=== PATIENT | male | born 1985 | race Caucasian/White ===

== ENCOUNTER 2017-04-13 16:37 | Emergency (ER) | payer OTHER ==
[~2017-04-13] VITALS: Ht 177.8 cm; Wt 145.2 kg
[~2017-04-13 16:37] MED LIST: FLUT16SP19 NS; LOR5/325 PO; NO; PRO25 PO; VARE1TAB4 PO
--- NOTE | 2017-04-13 16:44 | ER Report ---
History and Physical Time Seen By MD: 16:44 HPI/ROS CHIEF COMPLAINT: Nausea, vomiting and diarrhea HISTORY OF PRESENT ILLNESS: This is a 31-year-old male who presents to the emergency department for nausea, vomiting, diarrhea. Patient states that about six this morning and began having some nausea and then progressed into vomiting and diarrhea. Patient states that he's had nausea, vomiting and diarrhea all day with little relief. Patient states he's had abdominal pain he thinks due to the frequent vomiting episodes. Patient also states that he's not taking any medications for his symptoms. Patient has also has aches, chills and myalgias. Patient denies blood in the emesis or diarrhea. No urinary symptoms. No headaches, chest pain or shortness of breath. REVIEW OF SYSTEMS: Constitutional: As above. Eyes: No discharge. ENT: No sore throat. Cardiovascular: No chest pain, no palpitations. Respiratory: No cough, no shortness of breath. Gastrointestinal: As above. Genitourinary: No hematuria. Musculoskeletal: No back pain. Skin: No rashes. Neurological: No headache. Allergies: Coded Allergies: No Known Drug Allergies (Verified , 04/13/17) Home Meds Active Scripts Ondansetron (ZOFRAN ODT) 4 Mg Tab.rapdis, 4 MG PO Q6H Y for NAUSEA/VOMITING, # 20 TAB.ALFREDO Prov:AMBROCIO PRICE PARKING MANAGER- 04/13/17 Discontinued Reported Medications Fluticasone Prop 50 Mcg Ns (FLONASE 50 MCG NS) 16 Gm Mertens.susp, 2 SPRAYS NS QDAY, BOT 02/11/17 Varenicline Tartrate (CHANTIX) 1 Mg Tablet, 1 MG PO QDAY 02/11/17 Past Medical/Surgical History Patient has a past medical and surgical history of recent daily alcohol use and appendectomy Reviewed Nurses Notes: Yes Hx Smoking: No Smoking Status: Former Smoker Hx Substance Use Disorder: No Hx Alcohol Use: Yes (WEEKLY USE) Constitutional Vital Sign - Last 24 Hours 04/13/17 04/13/17 04/13/17 04/13/17 16:43 16:44 16:52 17:00 Temp 99.2 Pulse 134 128 Resp 20 B/P (MAP) 152/106 152/106 (121) 160/97 (118) Pulse Ox 92 92 O2 Delivery Room Air 04/13/17 04/13/17 04/13/17 04/13/17 17:07 17:11 17:22 17:30 Pulse 117 107 Resp 17 B/P (MAP) 150/93 (112) Pulse Ox 87 98 O2 Flow Rate 2.0 04/13/17 04/13/17 04/13/17 04/13/17 17:37 17:52 18:00 18:07 Pulse 100 105 106 B/P (MAP) 152/92 (112) Pulse Ox 98 98 95 04/13/17 04/13/17 04/13/17 04/13/17 18:12 18:17 18:22 18:27 Pulse 104 98 105 103 Pulse Ox 95 96 95 95 04/13/17 04/13/17 04/13/17 04/13/17 18:30 18:32 18:37 18:42 Pulse 99 98 93 B/P (MAP) 148/93 (111) Pulse Ox 96 96 96 04/13/17 04/13/17 04/13/17 04/13/17 18:47 18:52 18:57 19:00 Pulse 95 98 91 B/P (MAP) 150/92 (111) Pulse Ox 96 95 95 04/13/17 04/13/17 04/13/17 19:02 19:07 19:14 Temp 99.5 Pulse 96 94 85 Resp 16 B/P (MAP) 138/92 (107) Pulse Ox 96 96 95 O2 Delivery Room Air Physical Exam General Appearance: The patient is alert, has no immediate need for airway protection and no signs of toxicity. Eyes: Pupils equal and round no pallor or injection. ENT, Mouth: Mucous membranes are dry. Mild erythema to the posterior oropharynx. No tonsillar hypertrophy no exudate. Uvula midline no edema. Respiratory: There are no retractions, lungs are clear to auscultation. Cardiovascular: Regular rate and rhythm, no murmurs, clicks or rubs. Gastrointestinal: Abdomen is round and soft and tenderness to the right upper quadrant with palpation and the epigastrium, no masses, hyperactive bowel sounds. Neurological: Patient is alert and oriented 4. Moving all Achilles. Following all commands. No focal neuro deficits. Skin: Warm and dry, no rashes. Musculoskeletal: Neck is supple non tender. Extremities are nontender, non-swollen and have full range of motion. DIFFERENTIAL DIAGNOSIS: After history and physical exam differential diagnosis was considered for abdominal pain including but not limited to appendicitis, cholecystitis, gastritis and urinary tract infection, gastroenteritis. Medical Decision Making Data Points Result Diagram: 04/13/17 [id number] Laboratory Hematology Test 04/13/17 00:00 04/13/17 16:50 Lipase 158 U/L (23-300) Red Blood Count 5.04 M/uL (4.00-5.60) Mean Corpuscular Volume 96.5 fL (80.0-96.0) Mean Corpuscular Hemoglobin 33.1 pg (26.0-33.0) Mean Corpuscular Hemoglobin Concent 34.3 g/dL (32.0-36.0) Red Cell Distribution Width 13.4 % (11.5-14.5) Mean Platelet Volume 7.6 fL (7.2-11.1) Neutrophils (%) (Auto) 88.1 % (39.4-72.5) Lymphocytes (%) (Auto) 5.3 % (17.6-49.6) Monocytes (%) (Auto) 5.4 % (4.1-12.4) Eosinophils (%) (Auto) 0.7 % (0.4-6.7) Basophils (%) (Auto) 0.5 % (0.3-1.4) Nucleated RBC Relative Count (auto) 0.1 /100WBC Neutrophils # (Auto) 6.1 K/uL (2.0-7.4) Lymphocytes # (Auto) 0.4 K/uL (1.3-3.6) Monocytes # (Auto) 0.4 K/uL (0.3-1.0) Eosinophils # (Auto) 0.1 K/uL (0.0-0.5) Basophils # (Auto) 0.0 K/uL (0.0-0.1) Nucleated RBC Absolute Count (auto) 0.01 K/uL Peripheral Blood Smear No Y/N Urine Color Doris Urine Clarity Slightly-cloudy Urine pH 5.0 pH (4.8-9.5) Urine Specific Daphne 1.023 Urine Protein 30 mg/dL (NEGATIVE) Urine Glucose (UA) Negative mg/dL (NEGATIVE) Urine Ketones Negative mg/dL (NEGATIVE) Urine Blood Negative (NEGATIVE) Urine Nitrite Negative (NEGATIVE) Urine Bilirubin Negative (NEGATIVE) Urine Urobilinogen 2.0 mg/dL (0.2-1.9) Urine Leukocyte Esterase Negative (NEGATIVE) Urine RBC 1 /HPF (0-2/HPF) Urine WBC 4 /HPF (0-5/HPF) Urine Squamous Epithelial Cells Moderate /LPF (</=FEW) Urine Bacteria Negative /HPF (NONE-FEW) Urine Mucus Few /HPF (NONE-FEW) Sodium Level 137 mmol/L (137-145) Potassium Level 4.3 mmol/L (3.5-5.0) Chloride Level 101 mmol/L (98-107) Carbon Dioxide Level 24 mmol/L (22-30) Blood Urea Nitrogen 10 mg/dl (9-21) Creatinine 0.90 mg/dl (0.66-1.25) Glomerular Filtration Rate Calc > 60.0 Random Glucose 102 mg/dl (75-110) Calcium Level 8.9 mg/dl (8.4-10.2) Total Bilirubin 2.3 mg/dl (0.2-1.3) Aspartate Amino Transf (AST/SGOT) 358 U/L (0-35) Alanine Aminotransferase (ALT/SGPT) 111 U/L (0-56) Alkaline Phosphatase 84 U/L (0-126) Total Protein 7.6 gm/dl (6.3-8.2) Albumin 4.4 g/dl (3.5-5.0) Influenza Virus Type A (PCR) Negative (NEGATIVE) Influenza Virus Type B (PCR) Negative (NEGATIVE) Chemistry Test 04/13/17 00:00 04/13/17 16:50 Lipase 158 U/L (23-300) White Blood Count 7.0 k/uL (4.5-11.0) Red Blood Count 5.04 M/uL (4.00-5.60) Hemoglobin 16.7 g/dL (14.0-18.0) Hematocrit 48.6 % (42.0-52.0) Mean Corpuscular Volume 96.5 fL (80.0-96.0) Mean Corpuscular Hemoglobin 33.1 pg (26.0-33.0) Mean Corpuscular Hemoglobin Concent 34.3 g/dL (32.0-36.0) Red Cell Distribution Width 13.4 % (11.5-14.5) Platelet Count 176 K/uL (150-450) Mean Platelet Volume 7.6 fL (7.2-11.1) Neutrophils (%) (Auto) 88.1 % (39.4-72.5) Lymphocytes (%) (Auto) 5.3 % (17.6-49.6) Monocytes (%) (Auto) 5.4 % (4.1-12.4) Eosinophils (%) (Auto) 0.7 % (0.4-6.7) Basophils (%) (Auto) 0.5 % (0.3-1.4) Nucleated RBC Relative Count (auto) 0.1 /100WBC Neutrophils # (Auto) 6.1 K/uL (2.0-7.4) Lymphocytes # (Auto) 0.4 K/uL (1.3-3.6) Monocytes # (Auto) 0.4 K/uL (0.3-1.0) Eosinophils # (Auto) 0.1 K/uL (0.0-0.5) Basophils # (Auto) 0.0 K/uL (0.0-0.1) Nucleated RBC Absolute Count (auto) 0.01 K/uL Peripheral Blood Smear No Y/N Urine Color Doris Urine Clarity Slightly-cloudy Urine pH 5.0 pH (4.8-9.5) Urine Specific Daphne 1.023 Urine Protein 30 mg/dL (NEGATIVE) Urine Glucose (UA) Negative mg/dL (NEGATIVE) Urine Ketones Negative mg/dL (NEGATIVE) Urine Blood Negative (NEGATIVE) Urine Nitrite Negative (NEGATIVE) Urine Bilirubin Negative (NEGATIVE) Urine Urobilinogen 2.0 mg/dL (0.2-1.9) Urine Leukocyte Esterase Negative (NEGATIVE) Urine RBC 1 /HPF (0-2/HPF) Urine WBC 4 /HPF (0-5/HPF) Urine Squamous Epithelial Cells Moderate /LPF (</=FEW) Urine Bacteria Negative /HPF (NONE-FEW) Urine Mucus Few /HPF (NONE-FEW) Glomerular Filtration Rate Calc > 60.0 Calcium Level 8.9 mg/dl (8.4-10.2) Total Bilirubin 2.3 mg/dl (0.2-1.3) Aspartate Amino Transf (AST/SGOT) 358 U/L (0-35) Alanine Aminotransferase (ALT/SGPT) 111 U/L (0-56) Alkaline Phosphatase 84 U/L (0-126) Total Protein 7.6 gm/dl (6.3-8.2) Albumin 4.4 g/dl (3.5-5.0) Influenza Virus Type A (PCR) Negative (NEGATIVE) Influenza Virus Type B (PCR) Negative (NEGATIVE) Urinalysis Test 04/13/17 16:50 Urine Color Doris Urine Clarity Slightly-cloudy Urine pH 5.0 pH (4.8-9.5) Urine Specific Daphne 1.023 Urine Protein 30 mg/dL (NEGATIVE) Urine Glucose (UA) Negative mg/dL (NEGATIVE) Urine Ketones Negative mg/dL (NEGATIVE) Urine Blood Negative (NEGATIVE) Urine Nitrite Negative (NEGATIVE) Urine Bilirubin Negative (NEGATIVE) Urine Urobilinogen 2.0 mg/dL (0.2-1.9) Urine Leukocyte Esterase Negative (NEGATIVE) Urine RBC 1 /HPF (0-2/HPF) Urine WBC 4 /HPF (0-5/HPF) Urine Squamous Epithelial Cells Moderate /LPF (</=FEW) Urine Bacteria Negative /HPF (NONE-FEW) Urine Mucus Few /HPF (NONE-FEW) ED Course/Re-evaluation Clinical Indication for ER IV: Hydration, IV Access ED Course The patient was admitted to room. A history and physical were obtained. Differential diagnoses were considered. An IV was started. A 1 L normal saline bolus was given. 4 mg IV Zofran 2 were given. Lab studies showing MCV 96.5, percent neutrophils 88.1, total bili 2.3, AST 358, ALT 111, UA contaminated, negative influenza. These results were reviewed with the patient. I did ask the patient if he drinks on a daily basis due to his laboratory studies he said lately he has been drinking about a pint of alcohol daily until he leaves and travels for work, for several days, then stops drinking until he returns home and will binge again. We discussed tapering off the alcohol. He was very concerned out his laboratory studies and requested information regarding alcohol use and detox. Behavioral health did come down and give the patient some information regarding alcohol abuse as well as detox. Patient is showing no signs or symptoms of detox at this time. Patient states that he is feeling better at this time and is ready to go home. Patient's heart rate has come down to mid 80s to mid 90s. Nausea has improved. Patient will be sent home with a prescription for Zofran. Encouraged patient to follow up with a primary care provider. He was also encouraged to return to the emergency department for worsening symptoms. Patient had no other questions or concerns and was discharged home at this time. Decision to Disposition Date: Apr 13, 2017 Decision to Disposition Time: 19:06 Depart Departure Latest Vital Signs Vital Signs Date Time Temp Pulse Resp B/P (MAP) Pulse Ox O2 Delivery O2 Flow Rate FiO2 04/13/17 19:14 99.5 85 16 138/92 (107) 95 Room Air 04/13/17 17:11 2.0 Impression: Primary Impression: Gastroenteritis Additional Impression: Alcohol abuse Condition: Improved Disposition: HOME OR SELF-CARE New Scripts Ondansetron (ZOFRAN ODT) 4 Mg Tab.rapdis 4 MG PO Q6H Y for NAUSEA/VOMITING, #20 TAB.ALFREDO Prov: AMBROCIO PRICE-BC 04/13/17 Patient Instructions: Abuse of Alcohol (ED), Gastroenteritis (ED) Additional Instructions: Drink plenty of fluids. Get plenty of rest. Please come back on your alcohol consumption. Try a clear liquid diet for the next 12-24 hours and then progress into a regular diet. Please establish a primary care provider here in town in follow-up within the next 1-2 weeks if no improvement. Return to the emergency department for any other concerns or worsening symptoms. Problem Qualifiers AMBROCIO PRICE-BC Apr 13, 2017 16:44
[2017-04-13] MEDS ORDERED: NS(*) 0.9% 1000 ML BAG 1,000 ML IV ONE (16:58)
[2017-04-13] MEDS ORDERED: ONDANSETRON 4 MG/2 ML VIAL IVP ONE ×2 (17:00→17:55)
[2017-04-13 17:05] LABS: PLATELET COUNT, AUTOMATED 176 K/uL (150-450)
[2017-04-13] MEDS ORDERED: ONDA4TAB PO (18:47)
[2017-04-13 19:14] VITALS: BP 138/92
== END 2017-04-13 19:15 | disposition home or self-care (01) ==
LOC: ER 16:55
DX: K52.9 Noninfective gastroenteritis and colitis, unspecified (principal); F10.10 Alcohol abuse, uncomplicated
CPT/HCPCS: 81001; 83690; 85025; 87502; 96361; 96374; 96376; 99284; J2405; J7030; 82040; 82247; 82310; 82374; 82435; 82565; 82947; 84075; 84132; 84155; 84295; 84450; 84460; 84520